=== PATIENT | female | born 1950 | race African-American/Black ===

== ENCOUNTER → 2016-10-25 | Outpatient (CLI) | payer MEDICARE, OTHER ==
[~2016-10-25] VITALS: Ht 167.6 cm; Wt 102.1 kg
[~2016-10-25] MED LIST: BETA15OI6 TP; BUPIVACAINE 0.5% 50 ML VIAL. INJ ONE; ESTR30CR VG; FLUT9.9S NS; HYDR-2666 PO; HYDR25TA9 PO; IOHEXOL 300 MG/ML 10ML VIAL. IJ ONE; LIDOCAINE 1% / SOD BICARB 8.4% 20 ML VIAL. IJ ONE; LISI-334 PO; METO25TA9 PO; POLY17PO5 PO; methylPREDNISolone ACETATE 80 MG/ML VIAL. IM ONE
[2016-10-25 10:45] VITALS: BP 131/66
--- NOTE | 2016-10-25 11:51 | RAD ---
Fluoroscopically guided left hip joint injection, 10/25/2016: History: Arthritis Under local anesthesia, aseptic conditions and fluoroscopic guidance a 22-gauge spinal needle was passed into the left hip joint via an anterior approach. A small amount of iodinated contrast material was injected to confirm intra-articular positioning following which 80 mg of Depo-Medrol mixed with 4 cc of 0.5% Sensorcaine was injected in the joint as requested. The needle was then removed and hemostasis obtained. One fluoroscopic spot image was recorded. 0.6 minutes of fluoroscopy time was utilized. The patient tolerated the procedure well and left the department in good condition.
== END | disposition home or self-care (01) ==
LOC: RAD 10:23
PROVIDERS: ATTEND Nurse Practitioner Gerontology
DX: M16.12 Unilateral primary osteoarthritis, left hip (principal)
CPT/HCPCS: 20610; 77002; J1040; J3490; Q9967

== ENCOUNTER → 2017-01-17 | Outpatient (CLI) | payer MEDICARE, OTHER ==
[2016-10-25 10:45] VITALS: BP 131/66
[~2017-01-17] MED LIST changes: -BUPIVACAINE 0.5% 50 ML VIAL. INJ ONE; +BUPIVACAINE MPF 0.25% 10 ML VIAL. ONE; -HYDR-2666 PO; +HYDR-2758 PO; +IOHEXOL 180 MG/ML 10 ML VIAL. ONE; -IOHEXOL 300 MG/ML 10ML VIAL. IJ ONE; +IRON45TA3 PO; -LIDOCAINE 1% / SOD BICARB 8.4% 20 ML VIAL. IJ ONE; +POLY17PO29 PO; -POLY17PO5 PO; -methylPREDNISolone ACETATE 80 MG/ML VIAL. IM ONE; +methylPREDNISolone ACETATE 80 MG/ML VIAL. ONE
== END | disposition home or self-care (01) ==
LOC: PNCL 09:43
PROVIDERS: ATTEND Anesthesiology
DX: M16.12 Unilateral primary osteoarthritis, left hip (principal); I10 Essential (primary) hypertension; K21.9 Gastro-esophageal reflux disease without esophagitis; D64.9 Anemia, unspecified; Z87.39 Personal history of other diseases of the musculoskeletal system and connective tissue; Z90.710 Acquired absence of both cervix and uterus; Z72.89 Other problems related to lifestyle; Z88.0 Allergy status to penicillin; Z88.2 Allergy status to sulfonamides
CPT/HCPCS: 20610; 77002; J1040; J3490

== ENCOUNTER → 2017-06-07 | Outpatient (CLI) | payer MEDICARE, OTHER ==
[2016-10-25 10:45] VITALS: BP 131/66
[~2017-06-07] MED LIST changes: +BUPIVACAINE 0.5% 50 ML VIAL. IJ ONE; -BUPIVACAINE MPF 0.25% 10 ML VIAL. ONE; -IOHEXOL 180 MG/ML 10 ML VIAL. ONE; +IOHEXOL 300 MG/ML 10ML VIAL. ONE; +METO-239 PO; -METO25TA9 PO; +methylPREDNISolone ACETATE 80 MG/ML VIAL. INJ ONE; -methylPREDNISolone ACETATE 80 MG/ML VIAL. ONE
--- NOTE | 2017-06-07 14:52 | RAD ---
Fluoroscopically guided left hip joint injection, 06/07/2017: History: Hip pain, arthritis Under local anesthesia, aseptic conditions and fluoroscopic guidance a 22-gauge spinal needle was passed into the left hip joint via an anterior approach. A small amount of iodinated contrast material was injected to confirm intra-articular positioning following which 80 mg of Depo-Medrol mixed with 4 cc of 0.5% Sensorcaine was injected into the joint as requested. The needle was then removed and hemostasis obtained. 1.1 minutes of fluoroscopy time was utilized. One fluoroscopic spot image was recorded. The patient tolerated the procedure well and left the department in good condition.
== END | disposition home or self-care (01) ==
LOC: RAD 14:02
PROVIDERS: ATTEND Nurse Practitioner Gerontology
DX: M16.12 Unilateral primary osteoarthritis, left hip (principal)
CPT/HCPCS: 20605; 77002; J1040; J3490